=== PATIENT | male | born 1985 ===

== ENCOUNTER 2019-01-12 07:25 | Emergency (ER) | payer OTHER ==
[~2019-01-12] VITALS: Ht 190.5 cm; Wt 61.2 kg
== END 2019-01-12 10:20 | disposition left against medical advice (07) ==
LOC: ER 07:25
DX: S01.81XA Laceration without foreign body of other part of head, initial encounter (principal); Y08.89XA Assault by other specified means, initial encounter; Y93.89 Activity, other specified; Y92.488 Other paved roadways as the place of occurrence of the external cause; Y99.8 Other external cause status